=== PATIENT | male | born 1950 | race Caucasian/White ===

== ENCOUNTER → 2019-07-10 | Outpatient (CLI) | payer MEDICARE | END | disposition home or self-care (01) | LOC: RAH 12:19 | PROVIDERS: ATTEND Urology | DX: N20.0 Calculus of kidney (principal) | CPT/HCPCS: 74018; 76100 ==

== ENCOUNTER 2019-08-13 06:16 | Day surgery (SDC) | payer MEDICARE ==
[2019-08-08 10:35] VITALS: BP 138/74
[2019-08-08 10:57] LABS: HEMATOCRIT 40.5 % (42-54); MEAN CORPUSCULAR HEMOGLOBIN 26.3 pg (27.0-33.0); MEAN CORPUSCULAR HGB CONC 32.1 g/dL (32.0-36.0); PLATELET COUNT (AUTO) 195 K/uL (130-400); RED BLOOD CELL COUNT(AUTO) 4.94 MIL/uL (4.50-6.20); RED CELL DISTRIBUTION WIDTH 14.7 % (11.0-15.5); WHITE BLOOD COUNT (AUTO) 3.7 K/uL (4.8-10.8)
[2019-08-08 11:09] LABS: POTASSIUM 4.4 mmol/L (3.5-5.1)
[2019-08-08 11:30] LABS: INR 0.97 (0.85-1.15); PARTIAL THROMBOPLASTIN TIME 25.1 SEC (26.3-35.5); PROTHROMBIN TIME 10.2 SEC (9.6-11.6)
--- NOTE | 2019-08-12 13:30 | NUR ---
labs informed dr. wayne that UA, C&S not done on preop. due to patient informed preop nurse that dr. wayne told him not to "every let anyone obtain urine sample from suprapubic catheter". message left with Elis to ask if he wants nurses to obtain day of surgery or cancelled orders. awaiting for further orders.
--- NOTE | 2019-08-12 16:21 | NUR ---
lab attempted to call Elis at DR. Elizabeth to follow up on order no answer.
--- NOTE | 2019-08-12 17:27 | NUR ---
CALLED NUMEROUS TIMES TO GET CLARIFICATION IF WANTED A UA. NO ONE FROM OFFICE CALLED BACK TO CLARIFY.
[~2019-08-13] VITALS: Ht 170.2 cm; Wt 87.1 kg
[2019-08-13] VITALS (17 sets, daily range): BP systolic 85–126; BP diastolic 50–76
[~2019-08-13 06:16] MED LIST: CETI10TA57 PO; FLEC50TA3 PO; LACTATED RINGERS 1000ML 1,000 ML IV SCH; METF-444 PO; POTA10CA44 PO; SILD20TA14 PO; TORS10TA18 PO
[2019-08-13] MEDS ORDERED: CEFTRIAXONE SODIUM 1 GM ONE (06:54)
[2019-08-13] MEDS ORDERED: SODIUM CHLORIDE 0.9% 1000ML 1,000 ML IV ONE (06:54)
[2019-08-13] MEDS ORDERED: GLYCOPYRROLATE 1 MG/5 ML SYRINGE ONE (07:21)
[2019-08-13] MEDS ORDERED: MIDAZOLAM HCL 1 MG/ML 2ML VIAL ONE (07:21)
[2019-08-13] MEDS ORDERED: PROPOFOL 10 MG/ML 20ML VIAL IV ONE (07:21)
[2019-08-13] MEDS ORDERED: SUCCINYLCHOLINE 200MG/10ML SYR ONE (07:21)
[2019-08-13] MEDS ORDERED: LIDOCAINE PF 2% 5ML ABBOJECT ONE ×2 (07:21→07:25)
[2019-08-13] MEDS ORDERED: DEXAMETHASONE SOD PHOSPHATE 10MG/ML 1ML VIAL ONE (07:21)
[2019-08-13] MEDS ORDERED: NEOSTIGMINE 5MG/5ML SYR IV ONE (07:21)
[2019-08-13] MEDS ORDERED: ROCURONIUM 10MG/1ML SYR 10 MG/ML ML ONE (07:22)
[2019-08-13] MEDS ORDERED: ONDANSETRON HCL 4 MG/2 ML VIAL ONE (07:22)
[2019-08-13] MEDS ORDERED: FENTANYL CITRATE PF 50 MCG/1 ML 2ML VIAL ONE (07:22)
[2019-08-13] MEDS ORDERED: GENTAMICIN 80 MG/NS 100 ML PB 100 ML IV ONE (07:23)
[2019-08-13] MEDS ORDERED: ESMOLOL HCL 10 MG/ML 10 ML VIAL ONE (07:24)
[2019-08-13] MEDS ORDERED: GENTAMICIN 80 MG/NS 100 ML PB 100 ML IV SCH (07:30)
== END 2019-08-13 10:42 | disposition home or self-care (01) ==
LOC: DAH 06:16
PROVIDERS: ATTEND Urology
DX: N20.0 Calculus of kidney (principal); Z93.59 Other cystostomy status; Z87.448 Personal history of other diseases of urinary system; Z88.0 Allergy status to penicillin; Z88.9 Allergy status to unspecified drugs, medicaments and biological substances; Z88.1 Allergy status to other antibiotic agents; Z79.01 Long term (current) use of anticoagulants; Z79.899 Other long term (current) drug therapy; Z82.49 Family history of ischemic heart disease and other diseases of the circulatory system; Z83.3 Family history of diabetes mellitus
CPT/HCPCS: 36415; 50590; 71046; 74018; 80048; 82948 ×3; 85027; 85610; 85730; 93005; A4213; A4215; A4221; A4222; A4223; A4600; A4663; A6260; J0330; J1100; J1580; J2001 ×2; J2250; J2405; J2704; J2710; J3010; J3490 ×2; J7030 ×2; J0696

== ENCOUNTER → 2019-08-30 | Outpatient (CLI) | payer MEDICARE ==
[~2019-08-30] MED LIST changes: -LACTATED RINGERS 1000ML 1,000 ML IV SCH
== END | disposition home or self-care (01) ==
LOC: RAH 08:32
PROVIDERS: ATTEND Urology
DX: N20.0 Calculus of kidney (principal)
CPT/HCPCS: 74018

== ENCOUNTER → 2020-02-21 | Outpatient (CLI) | payer MEDICARE | END | disposition home or self-care (01) | LOC: RAH 13:48 | PROVIDERS: ATTEND Urology | DX: K44.9 Diaphragmatic hernia without obstruction or gangrene (principal); N28.1 Cyst of kidney, acquired; K57.30 Diverticulosis of large intestine without perforation or abscess without bleeding; J98.11 Atelectasis; N20.0 Calculus of kidney | CPT/HCPCS: 74176 ==

== ENCOUNTER → 2020-03-20 | Outpatient (CLI) | payer MEDICARE ==
[2020-03-20 11:40] LABS: POTASSIUM 3.7 mmol/L (3.5-5.1)
[2020-03-20 11:41] LABS: BASOPHILS % (AUTO) 0.8 % (0.0-5.0); EOSINOPHILS % (AUTO) 7.7 % (0.0-8.0); HEMATOCRIT 40.6 % (42-54); LYMPHOCYTES % (AUTO) 30.4 % (21.0-51.0); MEAN CORPUSCULAR HEMOGLOBIN 25.5 pg (27.0-33.0); MEAN CORPUSCULAR HGB CONC 31.8 g/dL (32.0-36.0); MEAN CORPUSCULAR VOLUME 80.2 fL (79-99); MONOCYTES % (AUTO) 11.1 % (3.0-13.0); NEUTROPHILS % (AUTO) 49.7 % (40.0-77.0); PLATELET COUNT (AUTO) 205 K/uL (130-400); RED BLOOD CELL COUNT(AUTO) 5.06 MIL/uL (4.50-6.20); RED CELL DISTRIBUTION WIDTH 16.9 % (11.0-15.5); WHITE BLOOD COUNT (AUTO) 3.9 K/uL (4.8-10.8)
== END | disposition home or self-care (01) ==
LOC: LAB 10:48
PROVIDERS: ATTEND Urology
DX: R31.0 Gross hematuria (principal)
CPT/HCPCS: 36415; 80048; 85025

== ENCOUNTER → 2020-04-14 | Outpatient (CLI) | payer MEDICARE ==
[~2020-04-14] MED LIST changes: +IOHEXOL-350 75 ML VIAL IV ONE
== END | disposition home or self-care (01) ==
LOC: RAH 07:27
PROVIDERS: ATTEND Urology
DX: K44.9 Diaphragmatic hernia without obstruction or gangrene (principal); R31.0 Gross hematuria; R18.8 Other ascites
CPT/HCPCS: 74178; Q9967

== ENCOUNTER → 2021-11-15 | Outpatient (CLI) | payer MEDICARE ==
[~2021-11-15] MED LIST changes: -IOHEXOL-350 75 ML VIAL IV ONE
== END | disposition home or self-care (01) ==
LOC: RAH 10:25
PROVIDERS: ATTEND Urology
DX: N21.0 Calculus in bladder (principal); M47.815 Spondylosis without myelopathy or radiculopathy, thoracolumbar region
CPT/HCPCS: 74018; 76100

== ENCOUNTER → 2023-05-10 | Outpatient (CLI) | payer MEDICARE ==
[~2023-05-10] MED LIST changes: -POTA10CA44 PO; +POTA10CA85 PO
== END | disposition home or self-care (01) ==
LOC: RAH 08:08
PROVIDERS: ATTEND Urology
DX: N20.0 Calculus of kidney (principal); N28.89 Other specified disorders of kidney and ureter
CPT/HCPCS: 74018; 76100

== ENCOUNTER 2023-05-23 05:28 | Day surgery (SDC) | payer MEDICARE ==
[2023-05-19 17:49] LABS: HEMATOCRIT 43.1 % (42-54); MEAN CORPUSCULAR HEMOGLOBIN 28.6 pg (27.0-33.0); MEAN CORPUSCULAR HGB CONC 33.4 g/dL (32.0-36.0); MEAN CORPUSCULAR VOLUME 85.7 fL (79-99); RED BLOOD CELL COUNT(AUTO) 5.03 MIL/uL (4.50-6.20); RED CELL DISTRIBUTION WIDTH 14.9 % (11.0-15.5); WHITE BLOOD COUNT (AUTO) 4.2 K/uL (4.8-10.8)
[2023-05-19 18:01] LABS: INR < 0.93 (0.85-1.15); PROTHROMBIN TIME 10.8 SEC (9.6-11.6)
[2023-05-19 18:03] LABS: PARTIAL THROMBOPLASTIN TIME 27.6 SEC (26.3-35.5)
[2023-05-19 18:05] LABS: ALBUMIN 3.3 g/dL (3.5-5.0); BILIRUBIN,TOTAL 0.7 mg/dL (0.2-1.0); CREATININE 1.1 mg/dL (0.5-1.5); POTASSIUM 4.3 mmol/L (3.5-5.1); TOTAL PROTEIN, SERUM 6.9 g/dL (6.0-8.3)
[2023-05-19 19:31] VITALS: BP 142/67; PULSE 91; RESP 16
[~2023-05-23] VITALS: Ht 172.7 cm; Wt 83.8 kg
[2023-05-23] VITALS (14 sets, daily range): BP systolic 109–131; BP diastolic 65–74; PULSE 61–76; RESP 10–18
[~2023-05-23 05:28] MED LIST changes: +DAPA10TA PO; +POTA-202 PO; -POTA10CA85 PO; -SILD20TA14 PO
[2023-05-23] MEDS ORDERED: 0.9%NACL 1000ML 1,000 ML IV ONE (05:42)
[2023-05-23] MEDS ORDERED: LIDOCAINE HCL MPF 1% 5ML VIAL ONE (06:08)
[2023-05-23] MEDS ORDERED: ROCURONIUM 10MG/1ML SYR 10 MG/ML ML ONE (06:09)
[2023-05-23] MEDS ORDERED: MIDAZOLAM HCL 1 MG/ML 2ML VIAL ONE (06:09)
[2023-05-23] MEDS ORDERED: PROPOFOL 10 MG/ML 20ML VIAL IV ONE (06:09)
[2023-05-23] MEDS ORDERED: FENTANYL CITRATE PF 50 MCG/1 ML 2ML VIAL ONE (06:10)
[2023-05-23] MEDS ORDERED: ZOSYN 3.375GM+NS 50ML 50 ML ONE (06:20)
[2023-05-23] MEDS ORDERED: ONDANSETRON 4MG INJ ONE (06:39)
[2023-05-23] MEDS ORDERED: DEXAMETHASONE SOD PHOSPHATE 4 MG/ML 1ML VIAL ONE (06:39)
[2023-05-23] MEDS ORDERED: KETOROLAC 30MG VIAL (30MG/ML) ONE (06:54)
[2023-05-23] MEDS ORDERED: GLYCOPYRROLATE 1 MG/5 ML SYRINGE ONE (07:25)
[2023-05-23] MEDS ORDERED: NEOSTIGMINE 5MG/5ML SYR IV ONE (07:25)
== END 2023-05-23 09:00 | disposition home or self-care (01) ==
LOC: DAH 05:28
PROVIDERS: ATTEND Urology
DX: N20.0 Calculus of kidney (principal); J45.20 Mild intermittent asthma, uncomplicated; E11.9 Type 2 diabetes mellitus without complications; Z82.49 Family history of ischemic heart disease and other diseases of the circulatory system; Z83.3 Family history of diabetes mellitus; Z88.0 Allergy status to penicillin; Z88.1 Allergy status to other antibiotic agents; Z88.5 Allergy status to narcotic agent; Z79.84 Long term (current) use of oral hypoglycemic drugs
CPT/HCPCS: 80053; 85027; 85610; 85730; 71046; 93005; 50590; 82948 ×2; 36415; A6260; J1100; A4663; J3010; J3490 ×2; J2710; J7030; J2250; J2704; J2405; J1885; J2543; A4215; A4223; A4222; A4221; A4600

== ENCOUNTER → 2023-06-21 | Outpatient (CLI) | payer MEDICARE | END | disposition home or self-care (01) | LOC: RAH 09:49 | PROVIDERS: ATTEND Urology | DX: N20.0 Calculus of kidney (principal) | CPT/HCPCS: 74018; 76100 ==